=== PATIENT | female | born 1935 | race Caucasian/White ===

== ENCOUNTER 2017-07-20 11:34 | Outpatient (CLI) | payer MEDICARE, BC ==
[2017-07-20 12:26] LABS: BUN 12 mg/dL (7-18)
[2017-07-20 12:27] LABS: GFR (ESTIMATED) 60 ML/MIN (59-)
[2017-07-20 12:30] VITALS: BP 127/50
[2017-07-20 13:20] VITALS: BP 128/63
== END 2017-07-20 13:20 | disposition home or self-care (01) ==
LOC: COP 11:34
PROVIDERS: Urology
DX: N39.0 Urinary tract infection, site not specified (principal)

== ENCOUNTER 2017-07-21 12:00 | Outpatient (CLI) | payer MEDICARE, BC ==
[2017-07-21 12:27] VITALS: BP 115/52
[2017-07-21 13:35] VITALS: BP 118/78
== END 2017-07-21 13:30 | disposition home or self-care (01) ==
LOC: COP 12:00
DX: N39.0 Urinary tract infection, site not specified (principal)

== ENCOUNTER 2017-07-22 12:18 | Outpatient (CLI) | payer MEDICARE, BC ==
[2017-07-22 12:35] VITALS: BP 156/67
[2017-07-22 13:42] VITALS: BP 148/68
== END 2017-07-22 13:35 | disposition home or self-care (01) ==
LOC: COP 12:18
DX: N39.0 Urinary tract infection, site not specified (principal)

== ENCOUNTER 2017-07-23 12:10 | Outpatient (CLI) | payer MEDICARE, BC ==
[~2017-07-23] VITALS: Ht 167.6 cm; Wt 76.3 kg
[2017-07-23 12:30] VITALS: BP 120/56
[2017-07-23 13:00] VITALS: BP 122/57
== END 2017-07-23 13:15 | disposition home or self-care (01) ==
LOC: COP 12:10
DX: N39.0 Urinary tract infection, site not specified (principal)

== ENCOUNTER 2017-07-24 11:55 | Outpatient (CLI) | payer MEDICARE, BC ==
[2017-07-24 12:30] VITALS: BP 131/59
[2017-07-24 13:00] VITALS: BP 137/59
[2017-07-24 13:20] VITALS: BP 116/50
== END 2017-07-24 12:30 | disposition home or self-care (01) ==
LOC: COP 11:55
DX: N39.0 Urinary tract infection, site not specified (principal)

== ENCOUNTER → 2017-07-25 | Outpatient (CLI) | payer MEDICARE, BC ==
[2017-07-25 12:00] VITALS: BP 122/54
[2017-07-25 12:53] VITALS: BP 114/55
== END ==
LOC: COP 11:51
DX: N39.0 Urinary tract infection, site not specified (principal)

== ENCOUNTER → 2017-07-26 | Outpatient (CLI) | payer MEDICARE, BC ==
[~2017-07-26] VITALS: Ht 165.1 cm; Wt 76.2 kg
[2017-07-26 12:25] VITALS: BP 111/55
[2017-07-26 12:45] VITALS: BP 116/58
== END ==
LOC: COP 11:54
DX: N39.0 Urinary tract infection, site not specified (principal)

== ENCOUNTER 2017-07-27 11:45 | Outpatient (CLI) | payer MEDICARE, BC ==
[~2017-07-27 11:45] MED LIST: 8 HOUR PAIN RE650 M1 PO; ASPIRIN CHILDRE81 M2 PO; CALCIUM 6001 TAB PO; CALCIUM WITH D1 CTB PO; CALCIUM500 MG PO; CELEBREX200 MG PO; CELEXA10 MG PO; CHEWABLE ASPIRI81 MG PO; CIPRO 500MG TA500 MG PO; CITALOPRAM20 MG PO; COUMADIN 2MG TAB2 MG PO; COUMADIN3 MG PO; DAILY MULTIPLE1 T11 PO; DITROPAN XL10 MG PO; DONEPEZIL 10MG10 MG PO; DONEPEZIL 5MG TA5 MG PO; DOXYCYCLINE HY100 M3 PO; ENABLEX7.5 MG PO; FEOSOL325 MG PO; GABAPENTIN300 MG PO; HYDROCHLOROTHIA25 M1 PO; LEVAQUIN500 MG PO; LEVOTHYROXIN0.075 M3 PO; LEVOTHYROXIN0.075 MG PO; LIPITOR10 MG PO; LISINOPRIL 10MG10 MG PO; LISINOPRIL 5MG T5 MG PO; LORTAB 500 MG-71 TAB PO; MELOXICAM15 MG OR; MELOXICAM15 MG PO; METOLAZONE 2.52.5 MG PO; MIRALAX PO; MIRALAX(PO17 GM/1 PA PO; NATURE'S BLE1000 MCG PO; NEURONTIN 300M300 MG PO; NITROSTAT 0.4M0.4 MG SL; OSTERA TABLET1 EACH PO; OXYBUTYNIN CHLO10 MG PO; PHENAZOPYRIDIN200 M1 PO; PROTONIX 40MG T40 MG PO; SIMVASTATIN40 MG PO; ZOCOR40 MG PO
[2017-07-27 12:20] VITALS: BP 124/54
[2017-07-27 12:35] VITALS: BP 126/57
[2017-07-27 12:50] VITALS: BP 128/51
[2017-07-27 13:00] VITALS: BP 122/58
== END 2017-07-27 13:00 | disposition home or self-care (01) ==
LOC: COP 11:45
DX: N39.0 Urinary tract infection, site not specified (principal)
CPT/HCPCS: J1335

== ENCOUNTER 2017-07-28 11:45 | Outpatient (CLI) | payer MEDICARE, BC ==
[2017-07-28 12:15] VITALS: BP 95/46
[2017-07-28 12:45] VITALS: BP 96/55
== END 2017-07-28 12:45 | disposition home or self-care (01) ==
LOC: COP 11:45
DX: N39.0 Urinary tract infection, site not specified (principal)
CPT/HCPCS: J1335

== ENCOUNTER 2017-07-29 11:25 | Outpatient (CLI) | payer MEDICARE, BC ==
[2017-07-29 11:49] VITALS: BP 131/54
[2017-07-29 12:04] VITALS: BP 129/57
[2017-07-29 12:30] VITALS: BP 130/59
== END 2017-07-29 12:35 | disposition home or self-care (01) ==
LOC: COP 11:25
DX: N39.0 Urinary tract infection, site not specified (principal)
CPT/HCPCS: J1335

== ENCOUNTER → 2017-07-30 | Outpatient (CLI) | payer MEDICARE, BC ==
[2017-07-30 11:45] VITALS: BP 136/63
[2017-07-30 12:15] VITALS: BP 137/61
[2017-07-30 12:45] VITALS: BP 131/68
[2017-07-30 12:50] VITALS: BP 131/68
== END ==
LOC: COP 11:35
DX: N39.0 Urinary tract infection, site not specified (principal)

== ENCOUNTER 2017-07-31 12:00 | Outpatient (CLI) | payer MEDICARE, BC ==
[2017-07-31 12:40] VITALS: BP 136/57
[2017-07-31 13:20] VITALS: BP 136/57
== END 2017-07-31 13:20 | disposition home or self-care (01) ==
LOC: COP 12:00
DX: N39.0 Urinary tract infection, site not specified (principal)
CPT/HCPCS: J1335

== ENCOUNTER 2017-08-01 11:50 | Outpatient (CLI) | payer MEDICARE, BC ==
[2017-08-01 12:19] VITALS: BP 126/57
[2017-08-01 12:44] VITALS: BP 132/61
== END 2017-08-01 12:58 | disposition home or self-care (01) ==
LOC: COP 11:50
DX: N39.0 Urinary tract infection, site not specified (principal)
CPT/HCPCS: J1335

== ENCOUNTER 2017-08-02 11:36 | Outpatient (CLI) | payer MEDICARE, BC ==
[2017-08-02 11:50] VITALS: BP 116/53
== END 2017-08-02 12:39 | disposition home or self-care (01) ==
LOC: COP 11:36
DX: N39.0 Urinary tract infection, site not specified (principal)
CPT/HCPCS: J1335

== ENCOUNTER 2017-08-26 15:30 | Outpatient (CLI) | payer MEDICARE, BC ==
[2017-08-26 14:48] VITALS: BP 133/87
--- NOTE | 2017-08-26 15:06 | RADIOLOGY REPORT PS360 ---
CHEST-AP VIEW ONLY HISTORY: Evaluate PICC line PICC LINE PULLED OUT ORDERING PHYSICIAN: Efrain Tao MD PATIENT AGE: 82 years COMPARISON: 08/25/2017 FINDINGS: The right upper extremity PICC line is no longer apparent. Unremarkable cardiovascular structures with clear lungs.. The lungs are clear without infiltrates, suspicious nodules, or pleural effusions. No acute bony abnormalities. IMPRESSION: PICC line is not identified in the chest No acute finding
--- NOTE | 2017-08-26 15:07 | RADIOLOGY REPORT PS360 ---
[id number] VIEWS CLINICAL INDICATION: Foreign body evaluation LOOKING FOR PICC LINE ORDERING PHYSICIAN: Efrain Tao MD PATIENT AGE: 82 years COMPARISON: None FINDINGS: AP lateral views of the right elbow and distal humerus shows no radio opaque foreign bodies at would represent a PICC line. IMPRESSION: Negative right elbow.
--- NOTE | 2017-08-26 15:12 | RADIOLOGY REPORT PS360 ---
FLUORO GUIDE FOR CV ACCESS HISTORY: LOCATION OF PICC LINE ORDERING PHYSICIAN: Efrain Tao MD PATIENT AGE: 82 years COMPARISON: None Fluoroscopy time: 1 minute and 46 seconds FINDINGS: Fluoroscopic evaluation performed of the heart, chest, right subclavian and axillary region, right upper extremity common neck, and upper abdomen showing no radiopaque foreign bodies that would represent a loose PICC line. IMPRESSION: No PICC line apparent
[2017-08-26 15:20] VITALS: BP 133/74
== END 2017-08-26 16:00 | disposition home or self-care (01) ==
LOC: COP 15:30
DX: N39.0 Urinary tract infection, site not specified (principal); N30.20 Other chronic cystitis without hematuria
CPT/HCPCS: J1335

== ENCOUNTER 2017-08-27 12:45 | Outpatient (CLI) | payer MEDICARE, BC ==
[2017-08-27 13:27] VITALS: BP 115/63
[2017-08-27 13:51] VITALS: BP 133/62
== END 2017-08-27 14:08 | disposition home or self-care (01) ==
LOC: COP 12:45
DX: N39.0 Urinary tract infection, site not specified (principal); N30.20 Other chronic cystitis without hematuria
CPT/HCPCS: J1335

== ENCOUNTER 2017-08-28 12:20 | Outpatient (CLI) | payer MEDICARE, BC ==
[2017-08-28 13:15] VITALS: BP 117/44
[2017-08-28 13:45] VITALS: BP 147/63
== END 2017-08-28 14:10 | disposition home or self-care (01) ==
LOC: COP 12:20
DX: N39.0 Urinary tract infection, site not specified (principal)
CPT/HCPCS: J1335

== ENCOUNTER 2017-08-29 12:37 | Outpatient (CLI) | payer MEDICARE, BC ==
[2017-08-29 12:45] VITALS: BP 126/55
[2017-08-29 13:29] VITALS: BP 124/59
== END 2017-08-29 13:35 | disposition home or self-care (01) ==
LOC: COP 12:37
DX: N39.0 Urinary tract infection, site not specified (principal)
CPT/HCPCS: J1335

== ENCOUNTER 2017-08-30 12:23 | Outpatient (CLI) | payer MEDICARE, BC ==
[2017-08-30 12:30] VITALS: BP 127/55
== END 2017-08-30 13:36 | disposition home or self-care (01) ==
LOC: COP 12:23
DX: N39.0 Urinary tract infection, site not specified (principal)
CPT/HCPCS: J1335

== ENCOUNTER 2017-08-31 13:02 | Outpatient (CLI) | payer MEDICARE, BC ==
[2017-08-31 13:54] VITALS: BP 121/66
[2017-08-31 15:15] VITALS: BP 143/66
== END 2017-08-31 14:00 | disposition home or self-care (01) ==
LOC: COP 13:02
DX: N39.0 Urinary tract infection, site not specified (principal)
CPT/HCPCS: J1335

== ENCOUNTER → 2017-09-01 | Outpatient (CLI) | payer MEDICARE, BC ==
[2017-09-01 13:28] VITALS: BP 111/57
[2017-09-01 14:08] VITALS: BP 112/62
== END ==
LOC: COP 13:00
DX: N39.0 Urinary tract infection, site not specified (principal)
CPT/HCPCS: J1335

== ENCOUNTER 2017-09-02 12:00 | Outpatient (CLI) | payer MEDICARE, BC ==
[2017-09-02 12:15] VITALS: BP 118/63
[2017-09-02 12:45] VITALS: BP 113/60
[2017-09-02 13:00] VITALS: BP 122/59
== END 2017-09-02 13:20 | disposition home or self-care (01) ==
LOC: COP 12:00
DX: N39.0 Urinary tract infection, site not specified (principal)
CPT/HCPCS: J1335

== ENCOUNTER 2017-09-03 12:55 | Outpatient (CLI) | payer MEDICARE, BC ==
[2017-09-03 12:55] VITALS: BP 132/57
[2017-09-03 14:33] VITALS: BP 132/78
== END 2017-09-03 14:15 | disposition home or self-care (01) ==
LOC: COP 12:55
DX: N39.0 Urinary tract infection, site not specified (principal)
CPT/HCPCS: J1335

== ENCOUNTER → 2017-09-05 | Outpatient (CLI) | payer MEDICARE, BC ==
[2017-09-05 11:37] LABS: URINE BLOOD 3+ (NEG)
[2017-09-05 11:38] LABS: URINE BILIRUBIN - DIPSTICK NEGATIVE (NEG)
== END ==
LOC: LAB 11:15
PROVIDERS: Urology
DX: N39.0 Urinary tract infection, site not specified (principal)

== ENCOUNTER → 2017-09-29 | Outpatient (CLI) | payer MEDICARE, BC ==
[~2017-09-29] VITALS: Ht 165.1 cm; Wt 77.3 kg
[2017-09-29 12:14] LABS: BUN 11 mg/dL (7-18); GFR (ESTIMATED) 60 ML/MIN (59-)
[2017-09-29 12:55] VITALS: BP 141/78
[2017-09-29 13:30] VITALS: BP 127/57
[2017-09-29 14:00] VITALS: BP 132/66
[2017-09-29 14:30] VITALS: BP 115/58
[2017-09-29 15:03] VITALS: BP 127/66
== END ==
LOC: COP 11:50
PROVIDERS: Urology
DX: N30.20 Other chronic cystitis without hematuria (principal); L29.3 Anogenital pruritus, unspecified
CPT/HCPCS: J3370

== ENCOUNTER → 2017-10-03 | Outpatient (CLI) | payer MEDICARE, BC ==
[~2017-10-03] VITALS: Ht 165.1 cm; Wt 77.1 kg
[2017-10-03 12:45] VITALS: BP 117/61
[2017-10-03 15:00] VITALS: BP 120/60
== END ==
LOC: COP 12:00
DX: N30.20 Other chronic cystitis without hematuria (principal); L29.3 Anogenital pruritus, unspecified
CPT/HCPCS: J3370

== ENCOUNTER → 2017-10-04 | Outpatient (CLI) | payer MEDICARE, BC ==
[~2017-10-04] VITALS: Ht 165.1 cm; Wt 77.1 kg
[2017-10-04 12:45] VITALS: BP 133/61
[2017-10-04 15:10] VITALS: BP 142/72
== END ==
LOC: COP 12:00
DX: N30.20 Other chronic cystitis without hematuria (principal); L29.3 Anogenital pruritus, unspecified
CPT/HCPCS: J3370

== ENCOUNTER 2017-10-05 12:15 | Outpatient (CLI) | payer MEDICARE, BC ==
[2017-10-05 13:30] VITALS: BP 130/60
[2017-10-05 14:00] VITALS: BP 130/65
[2017-10-05 14:14] VITALS: BP 122/54
[2017-10-05 14:26] VITALS: BP 132/66
--- NOTE | 2017-10-05 14:30 | CONSULT NOTE ---
Pharmacokinetic Consult Date of consult: 10/05/17 Time of consult: 624 Referring provider: DR. NUNO Reason for consult: VANCOMYCIN AND DOSE CHANGE Allergies: Coded Allergies: Cephalosporins (07/20/17) Penicillins (07/20/17) Sulfa (Sulfonamide Antibiotics) (07/20/17) brompheniramine (From DRIXORAL) (07/20/17) cephalexin (07/20/17) dexbrompheniramine (From DRIXORAL) (07/20/17) ibuprofen (07/20/17) nitrofurantoin (07/20/17) pseudoephedrine (From DRIXORAL) (07/20/17) Home Medications: Active Scripts Pantoprazole Sodium (Protonix 40MG TAB) 40 MG PO BID #60 TAB Ref 2 Prov: 03/28/16 DOXYCYCLINE HYCLATE (Doxycycline Hyclate) 100 MG PO BID #20 TAB Prov: 04/10/16 Reported Medications CITALOPRAM HYDROBROMIDE (Citalopram HBr) 40 MG PO DAILY Gabapentin (Neurontin 300MG) 300 MG PO BID Ferrous Sulfate (Feosol) 325 MG PO DAILY Vit D3 & K/Berberine HCl/Hops (Ostera Tablet) 1 EACH PO DAILY PHENAZOPYRIDINE HCL (Phenazopyridine 200MG Tablet) 200 MG PO TID Acetaminophen (8 Hour Pain Relief) 650 MG PO Q8 PRN PAIN Simvastatin (Simvastatin 40MG Tab) 40 MG PO QHS LISINOPRIL (Lisinopril) 5 MG PO DAILY Calcium Carbonate (Calcium) 500 MG PO DAILY Nitroglycerin (Nitrostat 0.4MG (1/150 Gr) Tabs #25) 0.4 MG SL [id number] HYDROCHLOROTHIAZIDE (Hydrochlorothiazide) 25 MG PO DAILY LEVOTHYROXINE SOD (Levothyroxine 0.075MG Tablet) 0.075 MG PO DAILY DONEPEZIL HCL (Donepezil 10MG Tablet) 10 MG PO QHS MULTIVITAMIN (Daily Multiple Vitamin) 1 TAB PO DAILY Height (feet): 5 Height (inches): 5.00 Medical History: CAD? Yes Angina: Yes [place]: Yes Hypertension? Yes Hyperlipidemia? Yes CHF? No DVT? Yes PE? No COPD? No Asthma? No Anemia? Yes GERD? No Gastric ulcers? Yes GI Bleed? Yes Hernia? No Thyroid Problems? Yes Hypothyroidism? Yes CVA? Yes Seizures? No Diabetes? No Renal Insuffiency? No UTI? Yes Stones? Yes BPH? No GB Disease: No Nephritic Syndrome? No Asplenia? No Hepatitis? No Sickle Cell Disease? No Arthritis? Yes Migraines? No Cataracts? Yes Glaucoma? No MRSA? No HIV? No TB? No Anxiety? Yes Depression? No Cancer? No More? Yes Additional hx: DEMENTIA/ALHEIMERS Labs: Laboratory Tests 10/05/17 1227: Vancomycin Trough 6.8 L Problem List: 1. UTI (urinary tract infection) Plan: PATIENT'S VANCOMYCIN TROUGH LEVEL WAS 6.8 MCG/ML THIS AM PRIOR TO 4TH DOSE AT THE CURRENT DOSING INTERVAL. DISCUSSED LEVEL WITH DR. NUNO AND DUE TO PATIENT ALLERGIES WILL CONTINUE WITH VANCOMYCIN FOR NOW. WILL INCREASE DOSE TO 1750 MG Q24H TO INCREASE TROUGH LEVEL SLIGHTLY. PHARMACY WILL FOLLOW AND ADJUST APPROPRIATE. YESENIA SANTOS, PHARMD at 1430
--- NOTE | 2017-10-05 14:30 | CONSULT NOTE ---
Pharmacokinetic Consult Date of consult: 10/05/17 Time of consult: 856 Referring provider: DR. NUNO Reason for consult: VANCOMYCIN AND DOSE CHANGE Allergies: Coded Allergies: Cephalosporins (07/20/17) Penicillins (07/20/17) Sulfa (Sulfonamide Antibiotics) (07/20/17) brompheniramine (From DRIXORAL) (07/20/17) cephalexin (07/20/17) dexbrompheniramine (From DRIXORAL) (07/20/17) ibuprofen (07/20/17) nitrofurantoin (07/20/17) pseudoephedrine (From DRIXORAL) (07/20/17) Home Medications: Active Scripts Pantoprazole Sodium (Protonix 40MG TAB) 40 MG PO BID #60 TAB Ref 2 Prov: 03/28/16 DOXYCYCLINE HYCLATE (Doxycycline Hyclate) 100 MG PO BID #20 TAB Prov: 04/10/16 Reported Medications CITALOPRAM HYDROBROMIDE (Citalopram HBr) 40 MG PO DAILY Gabapentin (Neurontin 300MG) 300 MG PO BID Ferrous Sulfate (Feosol) 325 MG PO DAILY Vit D3 & K/Berberine HCl/Hops (Ostera Tablet) 1 EACH PO DAILY PHENAZOPYRIDINE HCL (Phenazopyridine 200MG Tablet) 200 MG PO TID Acetaminophen (8 Hour Pain Relief) 650 MG PO Q8 PRN PAIN Simvastatin (Simvastatin 40MG Tab) 40 MG PO QHS LISINOPRIL (Lisinopril) 5 MG PO DAILY Calcium Carbonate (Calcium) 500 MG PO DAILY Nitroglycerin (Nitrostat 0.4MG (1/150 Gr) Tabs #25) 0.4 MG SL [id number] HYDROCHLOROTHIAZIDE (Hydrochlorothiazide) 25 MG PO DAILY LEVOTHYROXINE SOD (Levothyroxine 0.075MG Tablet) 0.075 MG PO DAILY DONEPEZIL HCL (Donepezil 10MG Tablet) 10 MG PO QHS MULTIVITAMIN (Daily Multiple Vitamin) 1 TAB PO DAILY Height (feet): 5 Height (inches): 5.00 Medical History: CAD? Yes Angina: Yes [place]: Yes Hypertension? Yes Hyperlipidemia? Yes CHF? No DVT? Yes PE? No COPD? No Asthma? No Anemia? Yes GERD? No Gastric ulcers? Yes GI Bleed? Yes Hernia? No Thyroid Problems? Yes Hypothyroidism? Yes CVA? Yes Seizures? No Diabetes? No Renal Insuffiency? No UTI? Yes Stones? Yes BPH? No GB Disease: No Nephritic Syndrome? No Asplenia? No Hepatitis? No Sickle Cell Disease? No Arthritis? Yes Migraines? No Cataracts? Yes Glaucoma? No MRSA? No HIV? No TB? No Anxiety? Yes Depression? No Cancer? No More? Yes Additional hx: DEMENTIA/ALHEIMERS Labs: Laboratory Tests 10/05/17 1227: Vancomycin Trough 6.8 L Problem List: 1. UTI (urinary tract infection) Plan: PATIENT'S VANCOMYCIN TROUGH LEVEL WAS 6.8 MCG/ML THIS AM PRIOR TO 4TH DOSE AT THE CURRENT DOSING INTERVAL. DISCUSSED LEVEL WITH DR. NUNO AND DUE TO PATIENT ALLERGIES WILL CONTINUE WITH VANCOMYCIN FOR NOW. WILL INCREASE DOSE TO 1750 MG Q24H TO INCREASE TROUGH LEVEL SLIGHTLY. PHARMACY WILL FOLLOW AND ADJUST APPROPRIATE. YESENIA SANTOS, PHARMD at 1430
[2017-10-05 14:58] VITALS: BP 125/68
[2017-10-05 15:37] VITALS: BP 147/73
== END 2017-10-05 15:49 | disposition home or self-care (01) ==
LOC: COP 12:15
DX: N30.20 Other chronic cystitis without hematuria (principal); L29.3 Anogenital pruritus, unspecified
CPT/HCPCS: J3370

== ENCOUNTER 2017-10-06 12:08 | Outpatient (CLI) | payer MEDICARE, BC ==
[2017-10-06 12:25] VITALS: BP 118/49
[2017-10-06 12:55] VITALS: BP 121/51
[2017-10-06 13:25] VITALS: BP 119/54
[2017-10-06 13:55] VITALS: BP 120/59
[2017-10-06 14:25] VITALS: BP 123/58
[2017-10-06 14:44] VITALS: BP 116/57
== END 2017-10-06 14:45 | disposition home or self-care (01) ==
LOC: COP 12:08
DX: N30.20 Other chronic cystitis without hematuria (principal); L29.3 Anogenital pruritus, unspecified
CPT/HCPCS: J3370

== ENCOUNTER 2017-10-07 12:10 | Outpatient (CLI) | payer MEDICARE, BC ==
[2017-10-07 12:55] VITALS: BP 121/61
[2017-10-07 13:25] VITALS: BP 116/68
[2017-10-07 13:55] VITALS: BP 119/62
[2017-10-07 14:25] VITALS: BP 118/65
[2017-10-07 14:55] VITALS: BP 120/67
[2017-10-07 15:15] VITALS: BP 117/64
== END 2017-10-07 15:25 | disposition home or self-care (01) ==
LOC: COP 12:10
DX: N30.20 Other chronic cystitis without hematuria (principal); L29.3 Anogenital pruritus, unspecified
CPT/HCPCS: J3370

== ENCOUNTER → 2017-10-08 | Outpatient (CLI) | payer MEDICARE, BC ==
[2017-10-08 10:51] VITALS: BP 120/64
[2017-10-08 11:15] VITALS: BP 122/58
[2017-10-08 12:15] VITALS: BP 128/68
[2017-10-08 13:05] VITALS: BP 125/79
== END ==
LOC: COP 10:11
DX: N30.20 Other chronic cystitis without hematuria (principal); L29.3 Anogenital pruritus, unspecified
CPT/HCPCS: J3370

== ENCOUNTER 2017-10-09 12:00 | Outpatient (CLI) | payer MEDICARE, BC ==
[2017-10-09 12:30] VITALS: BP 122/70
[2017-10-09 13:30] VITALS: BP 123/74
[2017-10-09 14:30] VITALS: BP 133/78
[2017-10-09 14:45] VITALS: BP 128/70
== END 2017-10-09 15:00 | disposition home or self-care (01) ==
LOC: COP 12:00
DX: N30.20 Other chronic cystitis without hematuria (principal); L29.3 Anogenital pruritus, unspecified
CPT/HCPCS: J3370